=== PATIENT | male | born 1955 | race Caucasian/White ===

== ENCOUNTER 2019-04-20 12:30 | Outpatient (RCR) | payer BC, SELFPAY ==
--- NOTE | 2019-03-24 13:41 | PTOPEVAL ---
PHYSICAL THERAPY EVALUATION AND PLAN OF CARE Thank you for referring this patient to [facility] [place]. Ishmael is scheduled to be seen 2x/week for 4 weeks. Please review, sign, date and return this plan of care JAN. I agree with and certify that the following plan of care is medically necessary. Referring Physician Date Attending Provider: Rubin Faria MD Evaluation Outpatient Past Medical History Neurological History Hx Other Neurological Disorders Yes: NEUROPATHY FEET Cardiovascular History Hx Cardiac Catheterization Yes: 2011 Hx Coronary Artery Bypass Graft Yes: 2011 2 VESSEL. NO BLOOD PRESSURE TO BE TAKEN IN RIGHT ARM Hx Coronary Artery Disease Yes Hx Hypercholesterolemia Yes Hx Hypertension Yes Hx Other Cardiac Disorders Yes: DR TANG ONCE A YR. LAST SEEN 02/02/19 Gastrointestinal History Hx Gastroesophageal Reflux Disease Yes Musculoskeletal History Hx Arthritis Yes: KNEES AND HANDS Hx Joint Replacement Yes: 03/25/18 RTKA Hx Orthopedic Surgery Yes: YOBANY SHOULDERS,RT KNEE SCOPE, LT CARPAL TUNNEL RELEASE Hx Spinal Surgery Yes: BACK SURGERY X 11 Hematological History Hx Hematological Disorders No Significant History Endocrine History Hx Diabetes Yes Pain History Has Past Pain Affected Your Daily Life Yes: LT KNEE Ineffective Methods of Pain Control STATES HAS A TENS UNIT IN PLACE.HAS NOT WORKED FOR 14 YRS. Anesthesia History Hx Post-Op Nausea/Vomiting Yes Hx Other Anesthesia Reactions Yes: COMBATIVE Evaluation Information Problem Diagnosis left TKA Onset 02/18/19 Subjective Information Ishmael is here 5 weeks s/p Query Text:As Reported By Patient/ left TKA. He did participate Family in 4 visits of home health PT before 03/06/19. Sidney were removed 03/06/19. States that he is leaving here to go get sutchurs removes from internally. He is tired of using his walker, but his prefers him to use it as he continues to be mildly unsteady Left Knee(s) Reported Pain Level 1 Pain Frequency Acute,Intermittent Current Pain Intensity 1 Greatest Pain Intensity 8 Pain Score Pain Score 1: Self Report Knee Range of Motion Left Knee Flexion Range of Motion - Active 98 Knee Flexion Range of Motion
--- NOTE | 2019-04-20 12:58 | PTOPEVAL ---
PHYSICAL THERAPY DISCHARGE REPORT Thank you for referring this patient to [facility]. Ishmael will be discharged from PT at this time. Please review, sign, date and return this plan of care JAN. I agree with and certify that the following plan of care is medically necessary. Referring Physician Date Attending Provider: Rubin Faria MD Discharge Information Diagnosis left TKA Onset 02/18/19 Subjective Information Ishmael is here 9 weeks s/p Query Text:As Reported By Patient/ left TKA. He reports no pain Family in left knee at this time. States he is doing everything he would normally need to do at home, including stepping up into a tall truck like he would for work. Pain Assessment Pain Score 0: Self Report Knee Range of Motion Left Knee Flexion Range of Motion - Active 112 Knee Extension Range of Motion - Active 5 Query Text: Knee Strength Left Knee Flexion Strength 4+ Good + Knee Extension Strength 5 Normal Gait Assessment Ambulation Assistive Devices None Ambulation Destination In Gym Ambulation Ability Independent Stair Climbing Assessment Stair Climbing Assistive Devices Railings Maintains Weight Bearing Status Yes Number of Steps Climbed (Steps) 4 Number of Repetitions (Repetitions) 2 Technique Alternating Steps Stair Climbing Ability Independent Clinical Summary Ishmael has met his functional goals at this time. He is ready for discharge from skilled PT and comfortable with his HEP. He has been updated on HEP. He demonstrates normal gait for him, normal stair climbing, WFL balance, and WFL strength. He will be discharged from PT at this time.
== END 2019-04-21 09:00 | disposition home or self-care (01) ==
LOC: ANHPT 12:30
PROVIDERS: PCP Family Medicine; Visit Provider Orthopaedic Surgery
DX: Z47.1 Aftercare following joint replacement surgery (principal); Z96.652 Presence of left artificial knee joint
CPT/HCPCS: 97110; 97140; 97162

== ENCOUNTER 2019-08-25 12:28 | Outpatient (CLI) | payer BC, SELFPAY ==
[2019-08-25 13:03] LABS: Basophils Absolute Auto 0.1 K/mm3 (0.0-0.1); Eosinophils Absolute Auto 0.3 K/mm3 (0-0.3); Eosinophils Percent Auto 5.5 % (0-4.4); Hematocrit 43.5 % (42.0-52.0); Hemoglobin 14.7 g/dL (14.0-18.0); Immature Granulocyte Absolute 0.04 K/mm3 (0.00-0.031); Immature Granulocyte Percent A 0.6 % (0-0.5); Lymphocytes Absolute Auto 2.79 K/mm3 (0.9-3.2); Lymphocytes Percent Auto 44.9 % (18.3-44.2); Mean Corpuscular HGB Conc 33.8 g/dl (32-36); Mean Corpuscular Hemoglobin 29.1 pg (26-34); Mean Platelet Volume 11.4 fl (7.4-10.4); Monocytes Absolute Auto 0.6 K/mm3 (0.1-0.6); Monocytes Percent Auto 9.6 % (2.6-8.5); Neutrophils Absolute Auto 2.4 K/mm3 (1.3-6.7); Neutrophils Percent Auto 38.4 % (45.5-73.1); Platelet Count Result 290 k/mm3 (150-375); Red Blood Count 5.06 M/mm3 (4.6-6.20); Red Cell Distribution Width 14.5 % (11.5-14.5); White Blood Count 6.2 K/mm3 (4.5-10.0)
[2019-08-25 13:20] LABS: Hemoglobin A1C 8.4 % (<5.7)
[2019-08-25 13:42] LABS: Alanine Aminotransferase 18 U/L (4-50); Albumin Level 4.4 g/dL (3.5-5.1); Alkaline Phosphatase 52 U/L (38-126); Aspartate Amino Transferase 23 U/L (17-59); Bilirubin,Total 0.6 mg/dL (0.2-1.3); Blood Urea Nitrogen 23 mg/dL (9-20); Calcium 9.1 mg/dL (8.4-10.2); Carbon Dioxide 23 mmol/L (22-30); Chloride 102 mmol/L (98-107); Cholesterol 195 mg/dL (0-200); Estimated Glomerular Filt Rate > 60; Glucose 222 mg/dL (75-110); HDL Direct 32 mg/dL; LDL Cholesterol Direct 98 mg/dL; Potassium 4.2 mmol/L (3.4-5.0); Sodium 136 mmol/L (137-145)
[2019-08-25 13:44] LABS: Triglycerides 591 mg/dL (<150)
[2019-08-25 13:47] LABS: Creatinine Urine 36.9 mg/dL
[2019-08-25 14:24] LABS: Microalbumin Urine Random < 6.0 mg/L (0-16.7)
[2019-08-27 19:57] LABS: PSA, Free 0.22 ng/mL
== END 2019-08-25 12:29 | disposition home or self-care (01) ==
PROVIDERS: PCP Family Medicine; Visit Provider Nurse Practitioner
DX: E11.9 Type 2 diabetes mellitus without complications (principal); Z12.5 Encounter for screening for malignant neoplasm of prostate; I10 Essential (primary) hypertension; E78.5 Hyperlipidemia, unspecified
CPT/HCPCS: 36415; 80053; 80061; 82043; 83036; 84153; 84154; 85025

== ENCOUNTER 2020-03-23 09:44 | Outpatient (CLI) | payer BC, SELFPAY ==
--- NOTE | 2020-03-23 12:00 | NEURO_ITS ---
IMPRESSION: # Noninsulin dependent diabetic complains of numbness of hands, left more than right. # Severe left Carpal Tunnel Syndrome. # Moderate right Carpal Tunnel Syndrome. # Left ulnar neuropathy across the elbow. # Abnormal needle/EMG exam in bilateral APB. Nerve Conduction Studies Anti Sensory Summary Table Stim Site NR Peak (ms) P-T Amp (?V) Site1 Site2 Delta-P (ms) Dist (cm) Blu (m/s) Left Median Anti Sensory (2-3nd Digit) Wrist 8.2 9.8 Wrist 2-3nd Digit 8.2 14.0 17 Wrist 9.4 11.5 Wrist 2-3nd Digit 8.2 14.0 17 Right Median Anti Sensory (2-3nd Digit) Wrist 7.0 7.2 Wrist 2-3nd Digit 7.0 14.0 20 Wrist 7.1 4.2 Wrist 2-3nd Digit 7.0 14.0 20 Left Radial Anti Sensory (Base 1st Digit) Wrist 2.4 17.4 Wrist Base 1st Digit 2.4 0.0 Right Radial Anti Sensory (Base 1st Digit) Wrist 2.3 17.2 Wrist Base 1st Digit 2.3 0.0 Left Ulnar Anti Sensory (5th Digit) Wrist 3.0 15.6 Wrist 5th Digit 3.0 14.0 47 Right Ulnar Anti Sensory (5th Digit) Wrist 2.6 36.3 Wrist 5th Digit 2.6 14.0 54 Motor Summary Table Stim Site NR Onset (ms) O-P Amp (mV) Site1 Site2 Delta-0 (ms) Dist (cm) Blu (m/s) Left Median Motor (Abd Poll Brev) Wrist 11.0 0.3 Elbow Wrist 6.0 31.0 52 Elbow 17.0 0.3 Right Median Motor (Abd Poll Brev) Wrist 6.3 1.2 Elbow Wrist 5.9 31.0 53 Elbow 12.2 1.2 Left Ulnar Motor (Abd Dig Minimi) Wrist 2.5 6.7 A Elbow Wrist 7.0 31.0 44 A Elbow 9.5 5.0 B Elbow Wrist 4.8 26.0 54 B Elbow 7.3 3.0 Right Ulnar Motor (Abd Dig Minimi) Wrist 2.7 6.3 A Elbow Wrist 5.7 31.0 54 A Elbow 8.4 4.7 F Wave Studies NR F-Lat (ms) L-R F-Lat (ms) Left Median (Mrkrs) (Abd Poll Brev) 35.79 1.40 Right Median (Mrkrs) (Abd Poll Brev) 34.39 1.40 Left Ulnar (Mrkrs) (Abd Dig Min) 31.88 0.49 Right Ulnar (Mrkrs) (Abd Dig Min) 32.36 0.49 EMG Side Muscle Nerve Root Ins Act Fibs Amp Dur Recrt Comment Right 1stDorInt Ulnar C8-T1 Nml Nml Nml Nml Nml Right Ext Indicis Radial (Post Int) C7-8 Nml Nml Nml Nml Nml Right Ext Digitorum Radial (Post Int) C7-8 Nml Nml Nml Nml Nml Right BrachioRad Radial C5-6 Nml Nml Nml Nml Nml Right PronatorTeres Median C6-7 Nml Nml Nml Nml Nml Right Abd Poll Brev Median C8-T1 Nml Nml Nml >12ms Reduced Left 1stDorInt Ulnar C8-T1 Nml Nml Nml Nml Nml Left Ext Indicis Radial (Post Int) C7-8 Nml Nml Nml Nml Nml Left Ext Digitorum Radial (Post Int) C7-8 Nml Nml Nml Nml Nml Left BrachioRad Radial C5-6 Nml Nml Nml Nml Nml Left PronatorTeres Median C6-7 Nml Nml Nml Nml Nml Left Abd Poll Brev Median C8-T1 Nml Nml Decr >12ms Reduced MTDD
== END 2020-03-23 09:45 | disposition home or self-care (01) ==
PROVIDERS: PCP Family Medicine; Visit Provider Orthopaedic Surgery
DX: G56.03 Carpal tunnel syndrome, bilateral upper limbs (principal); G56.22 Lesion of ulnar nerve, left upper limb
CPT/HCPCS: 95886; 95911

== ENCOUNTER → 2020-07-09 00:06 | Outpatient (CLI) | payer BC, SELFPAY ==
[2020-07-09 20:53] LABS: SARS-CoV-2 RNA PCR Negative
== END ==
PROVIDERS: PCP Family Medicine; Visit Provider Orthopaedic Surgery
DX: Z01.812 Encounter for preprocedural laboratory examination (principal); Z20.822 Contact with and (suspected) exposure to COVID-19
CPT/HCPCS: C9803; U0003; U0005

== ENCOUNTER 2020-07-12 01:56 | Day surgery (SDC) | payer BC, SELFPAY ==
[2020-06-29 13:38] VITALS: BMI 38.0
[2020-07-12] VITALS (8 sets, daily range): BP systolic 126–159; BP diastolic 74–86; PULSE 95–103; RESP 11–16; TEMP 36.1; O2SAT 92–97
--- NOTE | 2020-07-12 08:57 | WPDANESEPPF ---
Anes - Initial Pre Proc Eval Procedure: Operation Date: 07/12/20 12:00 Proposed Procedures p Left Carpal Tunnel Release - Rubin Faria MD Date/Time: 07/12/20 08:57 Surgeon: Rubin Faria MD Pre Op Diagnosis: Carpal Syndrome Patient Data Age: 64 Gender: M Height: 1.83 m Weight: 127.27 kg Allergies Allergy/AdvReac Type Severity Reaction Status Date / Time carbamazepine Allergy Mild Rash Verified 07/12/20 11:06 Home Medications Medication Instructions Recorded Confirmed Type ieCrowdTouch Ultra Blue Test Strip #100 each NS 05/04/19 06/03/20 Rx berberine-herbal comb no.18 capsule 1 cap PO BID cap 03/08/20 06/29/20 History canagliflozin 300 mg tablet 300 mg PO DAILY #90 tablet 04/25/20 06/29/20 Rx carvedilol 6.25 mg tablet 6.25 mg PO BID #180 tablet 04/25/20 07/12/20 Rx ezetimibe 10 mg tablet 10 mg PO DAILY #90 tablet 04/25/20 06/29/20 Rx fenofibrate micronized 134 mg 134 mg PO DAILY #90 cap 04/25/20 06/29/20 Rx capsule gabapentin 300 mg capsule 300 mg PO TID #270 cap 04/25/20 07/12/20 Rx lisinopril 10 mg tablet 10 mg PO HS #90 tablet 04/25/20 06/29/20 Rx chlorhexidine gluconate 4 % 1 applic TOPICAL ONCE #237 ml 05/05/20 06/29/20 Rx topical liquid clobetasol 0.05 % topical cream 0.05 g TOPICAL DAILY 06/01/20 06/29/20 History tacrolimus 0.1 % topical ointment 0.1 g TOPICAL DAILY 06/01/20 06/29/20 History glyburide 2.5 mg tablet 2.5 mg PO BID #180 tablet 06/03/20 06/29/20 Rx Patient hx anesthesia problems: none Family hx anesthesia problems: none PMFSH Past Medical History Medical History (Updated 06/03/20 @ 09:30 by Ailyn Zaidi NP) CAD (coronary artery disease) Status post CABG. CHF (congestive heart failure) Chronic GERD Chronic low back pain Degenerative joint disease of knee Hyperlipidemia Hypertension Obesity Osteoarthritis Right knee pain Surgical History Surgical History History of back surgery He has had numerous back surgeries, reportedly 11. History of left knee replacement History of right knee joint replacement Status post arthroscopy of right knee Status post carpal tunnel release Status post total knee replacement Status post two vessel coronary artery bypass October 2011. Family History Family History Father Family history of coronary artery disease Other Diabetes mellitus Family history of arthritis Family history of malignant neoplasm Hypertension Social History Social History Social History: The patient lives in [place] with his . 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 He smoked about a pack of cigarettes per day and quit in the . He drinks alcohol socially and in moderation. No drug use. He designates his , Alejandra, as his surrogate decision maker and he wishes to be a full code. Smoking packs per day: 9 Smoking cigarettes per day: 180.0 Years smoked: 15 Smoking pack-years: 135.00 Smoking status: Former smoker Tobacco type: cigarettes Second hand tobacco smoke exposure: No Smoking end date: 03/18/94 Additional smoking assessment comments: Smoked a pack a day for 20 years. Stopped 03/1994 Alcohol intake: current Drinks per week: 1 Alcohol use details: STATES MAYBE 1-2/MONTH Substance use: never Substance use type: does not use Living arrangements: with family Gender identity (if verbalized by the patient): Male Spiritual care concerns: No Agree to blood products: Yes Anes - Eval Final PreProcedure Day of Procedure 07/12/20 08:57 Patient weight: obese Heart: regular rate and rhythm Lungs: clear to auscultation and normal air movement Airway: Mallampati scale class II Neurological: alert and oriented Last oral intake: >/= 8 hours ASA classification: IV
[2020-07-12] MEDS: CELECOXIB 200 MG CAPSULE PO (10:25)
[2020-07-12] MEDS: KETOROLAC 15 MG/ML VIAL (*BKC) IV PUSH (10:25)
[2020-07-12] MEDS: ACETAMINOPHEN 500 MG TABLET 1000 MG PO (10:25)
[2020-07-12] MEDS: LACTATED RINGERS 1,000 ML 30 ML IV CONT ×2 (10:27→13:50)
[2020-07-12 10:38] LABS: Glucose Point of Care 184 (65-105)
--- NOTE | 2020-07-12 12:37 | WPDHPUPDATE1 ---
History and Physical Update Update Date/Time: 07/12/20 12:37 History and Physical has been reviewed, including an updated exam of the patient. There are NO changes in the patient's condition. Risks, benefits, and alternatives have been discussed and questions answered. Patient agrees to proceed with procedure.
--- NOTE | 2020-07-12 12:41 | PM.IMHP ---
H&P: HPI History of Present Illness Date/Time: 07/12/20 12:41 SUKH IS HERE FOR HIS LEFT CARPAL TUNNEL RELEASE. HE CONTINUES TO HAVE NUMBNESS AND TINGLING IN HIS HAND. WE ANSWERED ALL OF HIS QUESTIONS TODAY. HE IS READY FOR SURGERY. Chief Complaint: LEFT CARPAL TUNNEL SYNDROME Review of Systems Review of Systems: All systems reviewed & are unremarkable except as noted in HPI and below PMFSH Past Medical History Medical History CAD (coronary artery disease) Status post CABG. CHF (congestive heart failure) Chronic GERD Chronic low back pain Degenerative joint disease of knee Hyperlipidemia Hypertension Obesity Osteoarthritis Right knee pain Surgical History Surgical History History of back surgery He has had numerous back surgeries, reportedly 11. History of left knee replacement History of right knee joint replacement Status post arthroscopy of right knee Status post carpal tunnel release Status post total knee replacement Status post two vessel coronary artery bypass October 2011. Family History Family History Father Family history of coronary artery disease Other Diabetes mellitus Family history of arthritis Family history of malignant neoplasm Hypertension Social History Social History Social History: The patient lives in [place] with his . 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 He smoked about a pack of cigarettes per day and quit in the . He drinks alcohol socially and in moderation. No drug use. He designates his , Alejandra, as his surrogate decision maker and he wishes to be a full code. Smoking packs per day: 9 Smoking cigarettes per day: 180.0 Years smoked: 15 Smoking pack-years: 135.00 Smoking status: Former smoker Tobacco type: cigarettes Second hand tobacco smoke exposure: No Smoking end date: 03/18/94 Additional smoking assessment comments: Smoked a pack a day for 20 years. Stopped 03/1994 Alcohol intake: current Drinks per week: 1 Alcohol use details: STATES MAYBE 1-2/MONTH Substance use: never Substance use type: does not use Living arrangements: with family Gender identity (if verbalized by the patient): Male Spiritual care concerns: No Agree to blood products: Yes Meds Home Medications and Allergies Home Medications Medication Instructions Recorded Confirmed Type BrainCellsTouch Ultra Blue Test Strip #100 each NS 05/04/19 06/03/20 Rx berberine-herbal comb no.18 capsule 1 cap PO BID cap 03/08/20 06/29/20 History canagliflozin 300 mg tablet 300 mg PO DAILY #90 tablet 04/25/20 06/29/20 Rx carvedilol 6.25 mg tablet 6.25 mg PO BID #180 tablet 04/25/20 07/12/20 Rx ezetimibe 10 mg tablet 10 mg PO DAILY #90 tablet 04/25/20 06/29/20 Rx fenofibrate micronized 134 mg 134 mg PO DAILY #90 cap 04/25/20 06/29/20 Rx capsule gabapentin 300 mg capsule 300 mg PO TID #270 cap 04/25/20 07/12/20 Rx lisinopril 10 mg tablet 10 mg PO HS #90 tablet 04/25/20 06/29/20 Rx chlorhexidine gluconate 4 % 1 applic TOPICAL ONCE #237 ml 05/05/20 06/29/20 Rx topical liquid clobetasol 0.05 % topical cream 0.05 g TOPICAL DAILY 06/01/20 06/29/20 History tacrolimus 0.1 % topical ointment 0.1 g TOPICAL DAILY 06/01/20 06/29/20 History glyburide 2.5 mg tablet 2.5 mg PO BID #180 tablet 06/03/20 06/29/20 Rx Allergies Allergy/AdvReac Type Severity Reaction Status Date / Time carbamazepine Allergy Mild Rash Verified 07/12/20 11:06 Exam Extrem: Left upper extremity: normal to inspection, full ROM, normal capillary refill, no joint enlargement, shoulder/upper arm inspection abnormal, tenderness, axillary nerve sensory function normal and normal ROM; no abrasions, no lacerations, no ecch
[2020-07-12] MEDS: ceFAZolin 3 GM/D5W 100 ML 100 ML IVPB (12:52)
[2020-07-12] MEDS: BUPIVACAINE HCL 0.5% PF 30 ML VIAL INFILTRATE (12:58)
--- NOTE | 2020-07-12 13:46 | PM.PROC ---
Procedure Note - Detailed Date of procedure: 07/12/20 Pre-op diagnosis: Left Carpal Syndrome Post-op diagnosis: same Procedure performed: L CTR Description of procedure: THE LEFT UPPER EXTREMITY WAS PREPPED AND DRAPED IN THE STERILE FASHION. THE CARPAL TUNNEL WAS MARKED FROM THE FLEXED RING FINGER. THE TORNEQUET WAS INFLATED. THE INCISION WAS MADE AT THE MID PALM DOWN THROUGH THE SUBCUTANEOUS TISSUES. THE PALMAR FASCIA WAS IDENTIFIED. AN INCISION WAS MADE THROUGH THE PALMAR FASCIA UNTIL THE CARPAL TUNNEL WAS ENTERED. A MOSQUITO HEMOSTAT WAS USED TO PROTECT THE MEDIAN NERVE WHILE THE INCISION TO THE PALMAR FASCIA WAS COMPLETE PROXIMALLY AND DISTALLY TO THE CARDINAL LINE. NEXT, THE TRANSVERSE CARPAL LIGAMENT WAS IDENTIFIED. A FREIER ELEVATOR WAS USED TO SEPARATE THE NERVE FROM THE LIGAMENT. A METZENBAUM SCISSORS WAS THEN USED TO INCISE THE TRANSVERSE CARPAL LIGAMENT UNTIL THERE WAS A COMPLETE RELEASE OF THE CARPAL TUNNEL. THE MEDIAN NERVE WAS INTACT. THE TOURNEQUET WAS DEFLATED. THE BLEEDERS WERE CAUTERIZED. THE WOUND WAS WASHED. THE SKIN WAS APPROXIMATED WITH 4-0 NYLON SUTURE. STERILE DRESSING WAS APPLIED. PATIENT WAS EXTUBATED AND SENT TO THE RECOVERY ROOM. Anesthesia: GLMA Surgeon: Rubin Faria MD Estimated blood loss (mL): 5 Complications: No immediate complications Condition: stable Disposition: PACU
[2020-07-12 14:00] LABS: Glucose Point of Care 166 (65-105)
== END 2020-07-12 15:45 | disposition home or self-care (01) ==
PROVIDERS: PCP Nurse Practitioner; Visit Provider Orthopaedic Surgery
PROC: (CPT 64721; principal; 2020-07-12 12:00)
DX: G56.02 Carpal tunnel syndrome, left upper limb (principal); I11.0 Hypertensive heart disease with heart failure; I50.9 Heart failure, unspecified; I25.10 Atherosclerotic heart disease of native coronary artery without angina pectoris; E78.5 Hyperlipidemia, unspecified; K21.9 Gastro-esophageal reflux disease without esophagitis; M19.90 Unspecified osteoarthritis, unspecified site; Z95.1 Presence of aortocoronary bypass graft; Z87.891 Personal history of nicotine dependence; E66.9 Obesity, unspecified; Z68.38 Body mass index [BMI] 38.0-38.9, adult
CPT/HCPCS: 64721; 82948; A9270; J0690; J1100; J1885; J2250; J2405; J2704; J3010; J7120